=== PATIENT | male | born 1985 | race American Indian/Alaskan Native ===

== ENCOUNTER 2017-10-09 23:00 | Emergency (ER) | payer SELFPAY ==
[2017-10-09 23:05] VITALS: BP 148/95
--- NOTE | 2017-10-10 00:35 | Emergency Department Report ---
HPI - General Chief Complaint: Upper Respiratory Infection Time Seen by Provider: 10/10/17 00:07 ED Past Medical Hx - Past Medical History Previous Medical History?: Yes Hx Hypertension: Yes Hx Asthma: Yes Hx HIV: Yes Additional medical history: Depression, anxiety - Surgical History Past Surgical History?: Yes Hx Appendectomy: Yes - Social History Smoking Status: Never Smoker ED Review of Systems ROS: Stated complaint: NAUSEA,HEADACHE,BODY PAIN Other details as noted in HPI Physical Exam - Physical Exam Vital Signs: Vital Signs 10/09/17 10/09/17 23:00 23:08 Temperature 98.3 F 98.3 F Pulse Rate 98 H 98 H Respiratory 18 Rate Blood Pressure 148/95 148/95 O2 Sat by Pulse 99 99 Oximetry ED Course Vital Signs 10/09/17 10/09/17 23:00 23:08 Temperature 98.3 F 98.3 F Pulse Rate 98 H 98 H Respiratory 18 Rate Blood Pressure 148/95 148/95 O2 Sat by Pulse 99 99 Oximetry Critical care attestation.: If time is entered above; I have spent that time in minutes in the direct care of this critically ill patient, excluding procedure time. ED Disposition Condition: Stable Referrals: WALKER MARINELLI MD [Primary Care Provider] - 3-5 Days
== END 2017-10-10 00:35 | disposition left against medical advice (07) ==
LOC: ED 23:00
DX: R11.0 Nausea (principal); R51 Headache; M79.1 Myalgia; Z53.21 Procedure and treatment not carried out due to patient leaving prior to being seen by health care provider